=== PATIENT | female | born 1955 | race Caucasian/White ===

== ENCOUNTER 2020-07-21 14:22 | Emergency (ER) | payer BC, SELFPAY ==
[2020-07-21 14:44] VITALS: BP 154/95; PULSE 98; RESP 18; TEMP 36.5; O2SAT 98
[2020-07-21] MEDS: DEXAMETHASONE SOD PHOS INJ 4 MG/ML VIAL 10 MG IM (16:18)
--- NOTE | 2020-07-21 16:19 | ED.GENADULT ---
HPI - General Adult General Chief complaint: Skin/Abscess/Foreign Body Stated complaint: Rash to Face and Body x 3-4 years off and on Time Seen by Provider: 07/21/20 15:30 Source: patient Mode of arrival: ambulatory Limitations: no limitations History of Present Illness HPI narrative: Patient is 65-year-old female who presents with rash to the extremities and face noting itching irritating rash patient notes that this has been off and on for years patient is currently new to the area and does not have a doctor she had historically used creams but does not know what they are. Patient notes that the facial rash is worsened since wearing masks. Patient denies fever chills nausea vomiting. Patient notes she has also had some rhinorrhea patient also notes chronic cough secondary to tobacco abuse Related Data Allergies Allergy/AdvReac Type Severity Reaction Status Date / Time Penicillins Allergy Unknown Verified 08/28/15 12:30 Review of Systems Review of Systems: All systems reviewed & are unremarkable except as noted in HPI and below PMFSH Past Medical History Medical History Obese Social History Social History (Updated 07/21/20 @ 16:22 by Paul Salcido PA-C) Smoking status: Current every day smoker Exam Narrative: Exam Narrative: GENERAL: Well-appearing, obese, and in no acute distress. HEAD: Normocephalic, atraumatic. EYES: PERRLA and EOMI. ENT: Nares clear, no rhinorrhea or epistaxis. Mucous membranes moist. CHEST: Clear to auscultation. No respiratory distress. No wheezes rales or rhonchi HEART: Regular rate and rhythm. No murmur heard. EXTREMITIES: Normal range of motion. No edema. SKIN: Warm, dry, patient with eczematous rash of the face and splotchiness over the upper and lower extremities NEURO: No focal deficits. Alert and oriented x3. Cranial nerves II through XII grossly intact. Normal speech and gait PSYCH: Normal mood and affect. Course Course Emergency Course: Patient with likely eczematous rash will be referred to primary care for further evaluation felt appropriate for outpatient reevaluation given reasons to return Vital Signs Vital signs: Vital Signs Temperature 97.7 F 07/21/20 14:44 Pulse Rate 98 07/21/20 14:44 Respiratory Rate 18 07/21/20 14:44 Blood Pressure 154/95 H 07/21/20 14:44 Pulse Oximetry 98 07/21/20 14:44 Temperature 97.7 F 07/21/20 14:44 Pulse Rate 98 07/21/20 14:44 Respiratory Rate 18 07/21/20 14:44 Blood Pressure 154/95 H 07/21/20 14:44 Pulse Oximetry 98 07/21/20 14:44 Medical Decision Making MDM Narrative Medical decision making narrative: Patient afebrile nontoxic-appearing no distress normal vital signs will be discharged home with outpatient follow-up Vital Signs Vital Signs: Vital Signs Temperature 97.7 F 07/21/20 14:44 Pulse Rate 98 07/21/20 14:44 Respiratory Rate 18 07/21/20 14:44 Blood Pressure 154/95 H 07/21/20 14:44 Pulse Oximetry 98 07/21/20 14:44 Temperature 97.7 F 07/21/20 14:44 Pulse Rate 98 07/21/20 14:44 Respiratory Rate 18 07/21/20 14:44 Blood Pressure 154/95 H 07/21/20 14:44 Pulse Oximetry 98 07/21/20 14:44 Discharge Plan Discharge Clinical Impression: Eczema Patient Disposition: Home, Self-Care Condition: Stable Instructions: Antibiotic Form, Eczema (ED) Additional Instructions: Follow up with primary care in the next 2-3 days for re-evaluation and packing removal if placed Follow patient education sheet return if symptoms worsen or concerns, any increase in redness swelling pain or fever over 100.5 Stay well-hydrated Clean areas with eczema friendly soft so and use eczema creams [id number] Prescriptions: New hydrocortisone [Cortizone-10] 1 % cream 1 applic topical TID PRN (Reason: itching) Qty: 28.35 RF: 0 montelukast [Singulair] 10 mg tablet 10 mg PO HS Qty: 10 RF: 0 famot
== END 2020-07-21 16:40 | disposition home or self-care (01) ==
PROVIDERS: Emergency Provider Emergency Medicine
DX: L30.9 Dermatitis, unspecified (principal); E66.9 Obesity, unspecified; Z68.35 Body mass index [BMI] 35.0-35.9, adult; F17.200 Nicotine dependence, unspecified, uncomplicated
CPT/HCPCS: 96372; 99283; J1100

== ENCOUNTER 2020-08-10 10:55 | Outpatient (CLI) | payer BC, SELFPAY ==
--- NOTE | ~2020-08-10 | XR_ITS ---
EXAMINATION: XR lumbar spine 2-3V DATE: 08/10/2020 11:33 INDICATION: Low back pain TECHNIQUE: Anteroposterior and lateral views of the lumbar spine, and cone-down lateral view of the l umbosacral junction were obtained. COMPARISON: None. FINDINGS: There is lumbarization of the S1 segment. Bone alignment is normal. There is no fracture. M ild loss of intervertebral disc space height is seen at L2-3 and L5-S1. The vertebral body heights ar e maintained. Small degenerative osteophytes project from the anterior endplates of multiple vertebra l bodies. There is calcified atherosclerosis of the aorta and many of the other arteries. The bowel g as pattern is normal. There is mild facet osteoarthritis of the lower lumbar spine. IMPRESSION: 1. Mild lumbar spondylosis without acute findings. Reviewed, dictated and finalized at location A.
--- NOTE | ~2020-08-10 | XR_ITS ---
EXAMINATION: XR chest 2V DATE: 08/10/2020 11:33 INDICATION: Tobacco use. Back pain. TECHNIQUE: Frontal and lateral views of the chest were obtained. COMPARISON: Chest single view 06/12/2004 FINDINGS: The chest demonstrates clear lungs without pneumonia, pleural effusion, or pneumothorax. Th e heart size is normal. There is an old healed fracture of right seventh rib. IMPRESSION: 1. No acute cardiopulmonary disease. Reviewed, dictated and finalized at location B.
--- NOTE | ~2020-08-10 | XR_ITS ---
EXAMINATION: XR thoracic spine 3V DATE: 08/10/2020 11:33 INDICATION: Thoracic back pain TECHNIQUE: AP and lateral views of the thoracic spine were obtained. COMPARISON: None. FINDINGS: There is no fracture, dislocation, or subluxation. The vertebral body heights are maintaine d. There is mild chronic loss of intervertebral disc space height at several levels. Small degenerati ve osteophytes project from the anterior endplates of multiple vertebral bodies. IMPRESSION: 1. Mild thoracic spondylosis without acute findings. Reviewed, dictated and finalized at location A.
== END 2020-08-10 10:56 | disposition home or self-care (01) ==
LOC: ANHIMG 11:04
PROVIDERS: PCP Emergency Medicine; Visit Provider Emergency Medicine
DX: Z72.0 Tobacco use (principal); M47.894 Other spondylosis, thoracic region; M47.896 Other spondylosis, lumbar region
CPT/HCPCS: 71046; 72072; 72100